=== PATIENT | female | born 1980 | race Caucasian/White ===

== ENCOUNTER 2019-01-29 16:34 | Inpatient (IN) | payer MEDICAID ==
[~2019-01-29] VITALS: Ht 165.1 cm; Wt 75.0 kg
[~2019-01-29 16:34] MED LIST: CIP250 PO; OXYC1TAB PO
[2019-01-29] MEDS ORDERED: HTN MED PO (16:58)
[2019-01-29 17:27] LABS: BASOPHILS % (AUTO) 0.7 % (0.0-2.0); EOSINOPHILS % (AUTO) 2.5 % (1.0-6.0); HEMATOCRIT 38.4 % (36-46); HEMOGLOBIN 12.3 g/dL (12.0-16.0); LYMPHOCYTES # (AUTO) 2.1 K/uL (1.0-4.8); LYMPHOCYTES % (AUTO) 26.8 % (22.0-44.0); MEAN CORPUSCULAR VOLUME 75 fL (80-100); MONOCYTES # (AUTO) 0.6 K/uL (0.1-1.0); PLATELET COUNT (AUTO) 216 K/uL (150-450); RED BLOOD CELL COUNT(AUTO) 5.12 MIL/uL (4.00-5.20); RED CELL DISTRIBUTION WIDTH 17.8 % (11.5-14.5)
[2019-01-29 17:42] LABS: ANION GAP 7 mmol/L (8-16); CALCIUM, TOTAL 8.9 mg/dL (8.8-10.5); CARBON DIOXIDE 29 mmol/L (22-29); CHLORIDE 106 mmol/L (98-107); CREATININE 0.65 mg/dL (0.60-1.30); GLOMERULAR FILTR. RATE CALC > 60 mL/min (>60); GLUCOSE,RANDOM 99 mg/dL (70-110); POTASSIUM 4.2 mmol/L (3.5-5.1); SODIUM SERUM 142 mmol/L (136-145); UREA NITROGEN, BLOOD 12 mg/dL (7-18)
[2019-01-29 17:55] LABS: ALANINE AMINOTRANSFERASE 27 U/L (12-78); ALBUMIN 3.6 g/dL (3.4-5.0); ALKALINE PHOSPHATASE 83 U/L (46-116); ASPARTATE AMINOTRANSFERASE 15 U/L (15-37); BILIRUBIN,TOTAL 0.3 mg/dL (0.1-1.0); HCG,QUANTITATIVE < 1 mIU/mL (0-6); TOTAL PROTEIN, SERUM 7.5 g/dL (6.4-8.2)
[2019-01-29 18:59] LABS: AMPHET/METH SCREEN,URINE NEGATIVE (NEGATIVE); BARBITURATE SCREEN, URINE NEGATIVE (NEGATIVE); BENZODIAZEPINES SCREEN,URINE NEGATIVE (NEGATIVE); CANNABINOID SCREEN,URINE NEGATIVE (NEGATIVE); COCAINE SCREEN,URINE NEGATIVE (NEGATIVE); METHADONE SCREEN, URINE NEGATIVE (NEGATIVE); OPIATE SCREEN,URINE NEGATIVE (NEGATIVE)
[2019-01-29 19:00] LABS: PHENCYCLIDINE SCREEN,URINE NEGATIVE (NEGATIVE)
[2019-01-29] MEDS ORDERED: ZOLPIDEM TARTRATE 10 MG TABLET PO PRN (21:15)
[2019-01-29] MEDS ORDERED: LORazepam 2 MG TABLET PO PRN (21:15)
[2019-01-29] MEDS ORDERED: HALOPERIDOL 5 MG TABLET PO PRN (21:15)
[2019-01-30] MEDS ORDERED: PNEUMOCOCCAL VACCINE POLYVALENT 0.5 ML VIAL [PPSV23] IM ONE (01:45)
[2019-01-30 06:41] VITALS: BP 132/87
[2019-01-30] MEDS ORDERED: DOCUSATE SODIUM 100 MG CAPSULE PO PRN (07:15)
[2019-01-30] MEDS ORDERED: ALBUTEROL SULFATE HFA 90 MCG/PUFF 8 GM INHALER IH PRN (07:15)
[2019-01-30] MEDS ORDERED: MAG HYDROX/AL HYDROX/SIMETH ES 30 ML SUSPENSION UDCUP PO PRN (07:15)
[2019-01-30] MEDS ORDERED: ONDANSETRON HCL 4 MG TABLET PO PRN (07:15)
[2019-01-30] MEDS ORDERED: NICOTINE 14 MG/24 HOUR PATCH TD PRN (07:15)
[2019-01-30] MEDS ORDERED: LOPERAMIDE HCL 2 MG CAPSULE PO PRN (07:15)
[2019-01-30] MEDS ORDERED: CloNIDine HCL 0.1 MG TABLET PO PRN (07:15)
[2019-01-30] MEDS ORDERED: MAGNESIUM HYDROXIDE SUSPENSION 30 ML UDCUP PO PRN (07:15)
[2019-01-30] MEDS ORDERED: ACETAMINOPHEN 325 MG TABLET PO PRN (07:15)
[2019-01-30] MEDS ORDERED: PETROLATUM,WHITE 28 GM JELLY TP PRN (07:15)
[2019-01-30] MEDS ORDERED: GuaiFENesin/D-METHORPHAN [SUGAR-FREE] 200-20MG/10 ML SYRUP UDCUP PO PRN (07:15)
[2019-01-30 08:18] VITALS: BP 130/82
[2019-01-30] MEDS: ESCITALOPRAM OXALATE 10 MG TABLET PO SCH (15:04)
[2019-01-30 18:57] VITALS: BP 147/100
[2019-01-30] MEDS ORDERED: AmLODIPine BESYLATE 5 MG TABLET PO ONE (19:00)
[2019-01-30 20:45] VITALS: BP 131/76
[2019-01-31 06:21] VITALS: BP 124/82
[2019-01-31 06:22] VITALS: BP 148/89
[2019-01-31] MEDS: IBUPROFEN 400 MG TABLET PO PRN ×2 (06:24→17:17)
[2019-01-31] MEDS ORDERED: SUMAtriptan SUCCINATE 25 MG TABLET PO PRN (07:00)
[2019-01-31 07:18] LABS: CHOL/HDL RATIO 5.9 (3.9-5.7)
[2019-01-31 08:13] VITALS: BP 135/80
[2019-01-31] MEDS: AmLODIPine BESYLATE 5 MG TABLET PO SCH (08:40)
[2019-01-31] MEDS: ESCITALOPRAM OXALATE 10 MG TABLET PO SCH (08:41)
[2019-01-31 16:36] VITALS: BP 133/80
[2019-02-01 06:18] VITALS: BP 132/81
[2019-02-01 08:12] VITALS: BP 153/95
[2019-02-01] MEDS: ESCITALOPRAM OXALATE 10 MG TABLET PO SCH (09:03)
[2019-02-01] MEDS: AmLODIPine BESYLATE 5 MG TABLET PO SCH (09:04)
[2019-02-01] MEDS ORDERED: ESCI10TA54 PO (09:28)
[2019-02-01] MEDS ORDERED: ESCI10TA PO (15:11)
[2019-02-01] MEDS ORDERED: AMLO-511 PO (15:11)
[2019-02-01 16:00] VITALS: BP 127/91
== END 2019-02-01 15:55 | disposition home or self-care (01) | DRG 751 ==
LOC: EMS 16:35 → B3A 21:22
DX: F32.2 Major depressive disorder, single episode, severe without psychotic features (principal); R00.1 Bradycardia, unspecified; F53.0 Postpartum depression; I10 Essential (primary) hypertension; K21.9 Gastro-esophageal reflux disease without esophagitis; Z79.899 Other long term (current) drug therapy
CPT/HCPCS: G0480